=== PATIENT | female | born 1980 | race Caucasian/White ===

== ENCOUNTER 2021-06-07 11:35 | Outpatient (CLI) | payer MEDICARE | END 2021-06-07 11:36 | disposition critical access hospital (66) | LOC: EMS 11:35 | DX: F41.9 Anxiety disorder, unspecified (principal) | CPT/HCPCS: A0425; A0429 ==

== ENCOUNTER 2021-06-07 11:54 | Emergency (ER) | payer MEDICARE ==
--- NOTE | 2021-06-07 12:55 | ED Physician Documentation ---
PD HPI MHE - Stated complaint Stated Complaint: ETOH/ANXIETY - Chief complaint Chief Complaint: MHE - History obtained from History obtained from: Patient - History of Present Illness Primary symptom: Anxiety Timing - onset: Chronic Pain level max: 0 Pain level now: 0 - Additional information Additional information: Patient is a 41-year-old female who presents to the emergency department complaining of anxiety and a panic attack today. She states she is visiting from [place] and has quit drinking alcohol and smoking during her visit to the [place]. She states that she missed her airplane flight last night and has been staying in a hotel by herself. She states that she felt very anxious and nervous. She states she was unsure how she was going to get back to the airport to catch her flight tonight. She also states that she quit drinking alcohol a week ago and quit cigarettes 1 week ago as well. She is not suicidal or homicidal. Currently is feeling better after being out of the hotel. Review of Systems Ten Systems: 10 systems reviewed and negative Constitutional: denies: Fever, Chills Respiratory: denies: Cough GI: denies: Nausea, Vomiting, Diarrhea Skin: denies: Rash Musculoskeletal: denies: Neck pain, Back pain Neurologic: denies: Headache Psychiatric: denies: Depressed, Suicidal, Homicidal, Hallucinations PD PAST MEDICAL HISTORY - Past Medical History Past Medical History: Yes Psych: Anxiety - Allergies Allergies/Adverse Reactions: Allergies Allergy/AdvReac Type Severity Reaction Status Date / Time No Known Drug Allergies Allergy Verified 06/07/21 12:06 - Living Situation Living Situation: reports: With family Living Arrangement: reports: At home - Social History Does the pt smoke?: Yes Smoking Status: Former smoker Does the pt drink ETOH?: Yes Does the pt have substance abuse?: No - Family History Family history: reports: Non contributory PD ED PE NORMAL - Vitals Vital signs reviewed: Yes - General General: Alert and oriented X 3, No acute distress, Well developed/nourished - HEENT HEENT: PERRL, Moist mucous membranes - Neck Neck: Supple, no meningeal sign - Cardiac Cardiac: RRR, Strong equal pulses - Respiratory Respiratory: No respiratory distress, Clear bilaterally - Abdomen Abdomen: Soft, Non tender, Non distended - Derm Derm: Warm and dry - Extremities Extremities: No edema, No calf tenderness / cord - Neuro Neuro: Alert and oriented X 3, front office director 2-12 intact, No motor deficit, No sensory deficit, Normal speech - Psych Psych: Normal mood, Normal affect Results - Vitals Vitals: Vital Signs - 24 hr 06/07/21 06/07/21 12:01 13:34 Temperature 36.6 C 36.4 C L Heart Rate 106 H 109 H Respiratory 13 20 Rate Blood Pressure 134/90 H 110/66 O2 Saturation 98 98 Oxygen O2 Source Room air PD MEDICAL DECISION MAKING - ED course Complexity details: re-evaluated patient, considered differential, d/w patient, d/w [employer] [facility] consultant ED course: Patient with what appears to been a panic attack today. Social work was consulted and spoke with the patient. She has an appointment with her doctor and her psychiatrist next week. She is comfortable going back to the hotel and catching her flight tonight. Does not require any medications for home at this time. Patient counseled regarding signs and symptoms for which I believe and urgent re-evaluation would be necessary. Patient with good understanding of and agreement to plan and is comfortable going home at this time This document was made in part using voice recognition software. While efforts are made to proofread this document, sound alike and grammatical errors may occur. Departure - Departure Disposition: 01 Home, Self Care Clinical Impression: Anxiety attack Condition: Good Instructions: ED Stress React Follow-Up: Your,doctor in 1 week [Other] Comments: Please follow-up with your doctor for further care. Return if you worsen. Congratulations on stopping alcohol use and stopping cigarettes. Crisis Line and is available to talk to someone [email or web address] is also available to chat with someone online if you prefer. There are also many resources on this website and apps for your phone to help with your mental health You can also text the word START to [phone] to chat with someome via text. Discharge Date/Time: 06/07/21 13:54
[2021-06-07 13:34] VITALS: BP 110/66
[2021-06-07] MEDS ORDERED: ALPRAZolam 0.25 MG TABLET PO STA (13:35)
== END 2021-06-07 13:54 | disposition home or self-care (01) ==
LOC: ED 11:54
DX: F41.0 Panic disorder [episodic paroxysmal anxiety] (principal); Z87.891 Personal history of nicotine dependence
CPT/HCPCS: 99283; A9270